=== PATIENT | male | born 1985 | race Caucasian/White ===

== ENCOUNTER 2022-06-13 13:32 | Emergency (ER) | payer BC, MEDICAID | END 2022-06-13 16:33 | disposition home or self-care (01) | LOC: JP.ED 13:32 | DX: S93.601A Unspecified sprain of right foot, initial encounter (principal); S93.602A Unspecified sprain of left foot, initial encounter; Z72.0 Tobacco use; W12.XXXA Fall on and from scaffolding, initial encounter | CPT/HCPCS: 73610-50; 736105026; 736302650; 73630-50; 99283 ==